=== PATIENT | male | born 1970 | race Caucasian/White ===

== ENCOUNTER 2018-01-03 20:48 | Emergency (ER) | payer OTHER ==
[~2018-01-03] VITALS: Ht 175.3 cm; Wt 77.1 kg
[~2018-01-03 20:48] MED LIST: Bactrim 400-801 EACH PO; Naprosyn500 MG PO
[2018-01-03] MEDS ORDERED: Monodox100 MG PO (21:20)
== END 2018-01-03 21:50 | disposition home or self-care (01) ==
LOC: ER 20:48
DX: S91.135A Puncture wound without foreign body of left lesser toe(s) without damage to nail, initial encounter (principal); L03.032 Cellulitis of left toe; F17.200 Nicotine dependence, unspecified, uncomplicated; X58.XXXA Exposure to other specified factors, initial encounter
CPT/HCPCS: 99282

== ENCOUNTER 2022-04-25 12:12 | Inpatient (IN) | payer OTHER ==
[~2022-04-25] VITALS: Ht 175.3 cm; Wt 74.2 kg
[~2022-04-25 12:12] MED LIST changes: +Monodox100 MG PO; +Vibramycin100 MG PO
[2022-04-25 14:04] LABS: Influenza A, PCR NEGATIVE (NEGATIVE); Influenza B, PCR NEGATIVE (NEGATIVE); Resp Syncytial Virus, PCR NEGATIVE (NEGATIVE); SARS-Cov-2 (COVID-19) PCR, MMC NEGATIVE (NEGATIVE)
[2022-04-25 14:30] LABS: Magnesium, Blood 2.3 mg/dL (1.6-2.4)
[2022-04-25 14:31] LABS: Albumin, Blood 2.2 g/dL (3.4-5.0); Albumin/Globulin Ratio 0.4 (0.8-1.8); Bilirubin, Direct 0.4 mg/dL (0.0-0.3); Bilirubin, Indirect 0.4 mg/dL (0.1-0.7); Bilirubin, Total 0.8 mg/dL (0.1-1.0); Bun/Creatinine Ratio 16.6 (12.0-20.0); Calcium, Blood 9.3 mg/dL (8.5-10.1); Creatinine, Blood 0.78 mg/dL (0.60-1.20); Globulin, Blood 5.4 g/dL (2.2-4.0); Hematocrit 39.5 % (37.0-53.0); Mean Corpuscular HGB 28.3 pg (26.0-34.0); Mean Corpuscular HGB Conc 32.9 g/dL (31.5-36.5); Mean Corpuscular Volume 86 fL (80-100); Mean Platelet Volume 9.7 fL (9.1-12.4); Platelet Count 533 K/mm3 (150-400); Potassium, Blood 3.9 mmol/L (3.5-5.5); RDW Coefficient Variation 12.9 % (11.7-14.2); RDW Standard Deviation 40.5 fL (35.1-46.3); Total Protein, Blood 7.6 g/dL (6.4-8.2); White Blood Cell Count 22.75 K/mm3 (4.00-11.30)
[2022-04-25 14:59] LABS: BAND PERCENT MAN 6 % (0-8); BASOPHILS PERCENT MAN 0 % (0-2); EOSINOPHILS PERCENT MAN 0 % (0-6); LYMPHOCYTES ABSOLUTE MAN 2.04 K/mm3 (0.84-5.20); LYMPHOCYTES PERCENT MAN 9 % (21-46); MONOCYTES ABSOLUTE MAN 0.91 K/mm3 (0.16-1.47); MONOCYTES PERCENT MAN 4 % (4-13); NEUTROPHILS ABSOLUTE MAN 19.79 K/mm3 (1.96-9.15); SEG NEUTROPHILS PERCENT MAN 81 % (41-73); TOTAL CELLS COUNTED 100
[2022-04-25 16:29] LABS: Source, Urine Clean Catch
[2022-04-25 16:35] LABS: Bilirubin, Urine Neg (Neg); Blood, Urine 1+ (Neg); Color, Urine Yellow (P-Yellow); Glucose Qualitative, Urine Neg (Neg); Ketones, Urine Neg (Neg); Leukocyte Esterase, Urine Neg (Neg); Nitrite, Urine Neg (Neg); Protein, Urine 2+ (Neg); Urobilinogen, Urine 2+ (Normal)
[2022-04-25 16:50] LABS: Appearance, Urine Clear (Clear)
[2022-04-25 16:52] LABS: Bacteria Few /hpf; Red Blood Cells, Urine 0-2 /hpf (0-2); Squamous Epithelial Cells Few /hpf (Few)
[2022-04-25 16:53] LABS: Amorphous Light (0-Heavy)
--- NOTE | 2022-04-25 21:03 | NUR ---
ADMISSION REPORT RECIEVED FROM ER NURSE AROUND 1999, PATIENT NEEDED IV ACCESS PRIOR TO COMING TO UNIT. PATIENT ARRIVES TO PCU 02 AT 2100. IV IN UPPER LEFT ARM INFILTRATED UPON ARRIVAL TO PCU. [employer] TO ATTEMPT POWERGLIDE. PATIENT ABLE TO MOVE SELF OVER TO PCU BED. PATIENT ALERT AND ORIENTED, ABLE TO ANSWER QUESTIONS APPROPRIATELY. PATIENT DENIES CHEST PAIN OR SHORTNESS OF BREATH, VSS. PATIENT ORIENTED TO ROOM AND CALL LIGHT SYSTEM. BED IN LOW POSITION.
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
[2022-04-26 03:37] LABS: Hematocrit 32.7 % (37.0-53.0); Mean Corpuscular HGB 28.6 pg (26.0-34.0); Mean Corpuscular HGB Conc 33.6 g/dL (31.5-36.5); Mean Corpuscular Volume 85 fL (80-100); Mean Platelet Volume 9.2 fL (9.1-12.4); Platelet Count 459 K/mm3 (150-400); RDW Coefficient Variation 12.9 % (11.7-14.2); RDW Standard Deviation 39.6 fL (35.1-46.3); Red Blood Cell Count 3.85 M/mm3 (4.30-5.90); White Blood Cell Count 20.88 K/mm3 (4.00-11.30)
[2022-04-26 03:53] LABS: Creatinine, Blood 0.75 mg/dL (0.60-1.20); Potassium, Blood 3.4 mmol/L (3.5-5.5)
--- NOTE | 2022-04-26 06:07 | NUR ---
SHIFT SUMMARY PATIENT ALERT AND ORIENTED, ABLE TO MAKE NEEDS KNOWN TO STAFF. VSS, PATIENT REMAINS ON RA WITH O2 SAT >90%. AFEBRILE. DENIES CHEST PAIN OR PRESSURE. ONLY COMPLAINT T/O NIGHT WAS GI UPSET, SEE PREVIOUS NOTE. USES URINAL INDEPENDENTLY. POWERGLIDE PLACED THIS SHIFT. NO OTHER SIGNIFICANT CHANGES, WILL REPORT TO DAY SHIFT RN.
--- NOTE | 2022-04-26 09:26 | NUR ---
AM NOTES: PT STARTED BREAKING OUT IN HIVES AFTER AZITHROMYCIN IV ABO WAS STARTED INFUSING, PT FREAKED OUT "I CANT STOP ITCHING ITS EVERYWHERE!" HIVES/URTICARIA NOTED ON UPPER TORSO BOTH BILATERAL UPPER AND LOWER EXTREMITIES, PT NOT C/O SOB, SATS AT 98% ON RA, NO OTHER COMPLAINS. PROVIDER CALLED AND MADE AWARE ORDER FOR X1 DOSE OF BENADYRL PO 50MG WAS GIVEN, ALSO NOTIFIED OF POSITIVE BLOOD CULTURE GRAM POSITIVE COCCI IN CHAINS AND THAT IV AZITHROMYCING WAS NOT INFUSED, PROVIDER TO REVIEW PT'S CHART. PT REMAINED IN BED RESTING. CALLS APPROPIRATELY, ALERT AND ORIENTED X4. VITALS HRR SR 80'S, SBP 100'S, AFEBRILE. PT REPORTED ITCHING AND HIVES ARE STARTING TO FADE AWAY. NOW RESTING IN BED CALL LIGHTS IN REACH
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
[2022-04-27 04:05] LABS: BASOPHILS ABSOLUTE AUTO 0.05 K/mm3 (0.00-0.23); BASOPHILS PERCENT AUTO 0 % (0-2); EOSINOPHILS ABSOLUTE AUTO 0.15 K/mm3 (0.00-0.68); EOSINOPHILS PERCENT AUTO 1 % (0-6); Hematocrit 32.5 % (37.0-53.0); Hemoglobin 10.6 g/dL (13.5-17.5); IMMATURE GRAN PERCENT AUTO 2 % (0-1); LYMPHOCYTES ABSOLUTE AUTO 1.64 K/mm3 (0.84-5.20); LYMPHOCYTES PERCENT AUTO 10 % (21-46); MONOCYTES ABSOLUTE AUTO 0.93 K/mm3 (0.16-1.47); MONOCYTES PERCENT AUTO 6 % (4-13); Mean Corpuscular HGB 28.1 pg (26.0-34.0); Mean Corpuscular HGB Conc 32.6 g/dL (31.5-36.5); Mean Corpuscular Volume 86 fL (80-100); Mean Platelet Volume 9.1 fL (9.1-12.4); NEUTROPHILS ABSOLUTE AUTO 13.55 K/mm3 (1.96-9.15); NEUTROPHILS PERCENT AUTO 82 % (41-73); Platelet Count 542 K/mm3 (150-400); RDW Coefficient Variation 13.1 % (11.7-14.2); Red Blood Cell Count 3.77 M/mm3 (4.30-5.90); White Blood Cell Count 16.62 K/mm3 (4.00-11.30)
[2022-04-27 04:24] LABS: Bun/Creatinine Ratio 20.7 (12.0-20.0); Creatinine, Blood 0.72 mg/dL (0.60-1.20); Magnesium, Blood 2.1 mg/dL (1.6-2.4); Potassium, Blood 3.9 mmol/L (3.5-5.5)
--- NOTE | 2022-04-27 05:54 | NUR ---
SHIFT SUMMARY PATIENT ALERT AND ORIENTED, COOPERATIVE WITH CARE. VSS, PATIENT REMAINS ON RA T/O NIGHT WITH O2 SAT >90%. PATIENT DENIES CHEST PAIN OR PRESSURE. REPORTING RELIEF WITH GI MEDICATIONS THAT WERE ORDERED ON DAY SHIFT. PATIENT USING URINAL AT BEDSIDE INDEPENDENTLY. NO SIGNS OF REACTION WITH CHANGES TO ANTIBIOTICS. PATIENT ABLE TO SLEEP FOR MAJORITY OF SHIFT. NO OTHER SIGNIFICANT CHANGES THIS SHIFT, WILL REPORT TO DAY SHIFT RN.
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
== END 2022-04-27 12:44 | disposition left against medical advice (07) | DRG 871 ==
LOC: ER 12:12 → PCU 17:51
PROVIDERS: Student in an Organized Health Care Education/Training Program; ADMIT Internal Medicine
DX: A40.3 Sepsis due to Streptococcus pneumoniae (principal); J18.9 Pneumonia, unspecified organism; I38 Endocarditis, valve unspecified; E87.1 Hypo-osmolality and hyponatremia; B18.2 Chronic viral hepatitis C; F17.210 Nicotine dependence, cigarettes, uncomplicated; I95.9 Hypotension, unspecified; E86.0 Dehydration; Z20.822 Contact with and (suspected) exposure to COVID-19; F19.10 Other psychoactive substance abuse, uncomplicated; F15.10 Other stimulant abuse, uncomplicated; L50.0 Allergic urticaria; T36.3X5A Adverse effect of macrolides, initial encounter; K21.9 Gastro-esophageal reflux disease without esophagitis; Z59.00 Homelessness unspecified; Z98.890 Other specified postprocedural states; Z28.310 Unvaccinated for COVID-19
CPT/HCPCS: 0241U; 36415; 71045; 80048; 80076; 81001; 83605; 83690; 83735; 85025; 85027; 87040; 87186; 87449; 90686; 93005; 93010; 94760; A9270; C1751; J0456; J0696; J1650; J1885; J2020; J2405; J2543; J2765; J7030; J7050